=== PATIENT | female | born 1985 | race Caucasian/White ===

== ENCOUNTER 2021-06-24 14:23 | Outpatient (REF) | payer OTHER, SELFPAY ==
--- NOTE | ~2021-06-24 | US_ITS ---
EXAMINATION: US THYROID CLINICAL INFORMATION: Nontoxic single thyroid nodule. COMPARISON: None TECHNIQUE: Linear transducer grayscale and color Doppler examination with attention to the region of the thyroid. FINDINGS: SIZE: Measurements of the thyroid lobes and nodules are given in sagittal, anteroposterior and transverse dimensions respectively. Right Thyroid Lobe: 5.6 x 1.9 x 2.1 cm, volume 11.7 mL. Parenchyma: The gland echotexture is homogeneous. Thyroid vascularity is normal. Left Thyroid Lobe: 5.3 x 1.6 x 2.0 cm, volume 8.9 mL. Parenchyma: The gland echotexture is homogeneous. Thyroid vascularity is normal. Isthmus: 0.5 cm in maximum AP dimension. No focal thyroid nodule is seen. NODES: No lymphadenopathy is seen in the tissue surrounding the thyroid gland. US/US thyroid IMPRESSION: Slightly prominent right thyroid lobe upper limits of normal. No focal nodule or mass seen. ACR TI-RADS RECOMMENDATION REFERENCE: Ultrasound-guided fine-needle aspiration, followup ultrasound, no further follow up. * TR1 (0 point) and TR 2 (2 points): No FNA or follow up * TR3 (3 points): FNA if more than or equal to 2.5 cm in maximum dimension, followup ultrasound in 1, 3 and 5 years if 1.5 to 2.4 cm in maximum dimension. * TR4 (4-6 points): FNA if more than or equal to 1.5 cm in maximum dimension, followup ultrasound in 1, 2, 3 and 5 years if 1 to 1.4 cm in maximum dimension. * TR5 (more than or equal to 7 points): FNA if more than or equal to 1 cm in maximum dimension, followup ultrasound every year for 5 years if 0.5 to 0.9 cm in maximum dimension. * TR3, TR4 or TR5 nodules that are below the size threshold for follow up receive no follow up.
== END 2021-06-24 14:24 | disposition home or self-care (01) ==
LOC: HO.HMGCX 14:23
PROVIDERS: Visit Provider Internal Medicine Medical Oncology
DX: E04.1 Nontoxic single thyroid nodule (principal)
CPT/HCPCS: 76536

== ENCOUNTER 2021-07-06 10:02 | Outpatient (REF) | payer OTHER, SELFPAY ==
[2021-07-06 14:11] LABS: Free T4 (Free Thyroxine) 0.98 ng/dL (0.71-1.85); Thyroid Stimulating Hormone 0.84 uIU/mL (0.32-4.0)
[2021-07-08 05:32] LABS: Thyroid Peroxidase Antibodies 1 IU/mL (<9)
== END 2021-07-06 10:03 | disposition home or self-care (01) ==
LOC: HO.10HDL 10:02
PROVIDERS: Visit Provider Internal Medicine Medical Oncology
DX: Z13.29 Encounter for screening for other suspected endocrine disorder (principal)
CPT/HCPCS: 36415; 84439; 84443; 86376

== ENCOUNTER 2021-10-20 12:52 | Outpatient (REF) | payer OTHER, SELFPAY ==
[2021-10-20 12:57] VITALS: BMI 24.7
[2021-10-20 12:59] VITALS: BP 125/60; PULSE 83; RESP 16; TEMP 36.9; O2SAT 98
[2021-10-20 13:42] VITALS: BP 128/65; PULSE 70; RESP 16; O2SAT 99
--- NOTE | 2021-10-27 08:30 | W.PM.OPN ---
Operative Note Operative Note Date of Service: 10/27/21 Narrative: Preoperative diagnosis: Raised skin lesion lower left back Postoperative diagnosis: Same, probable protuberant lipoma Procedure: Excision of large skin lesion lower left back Surgeon: Huy Amador MD [place] Drill Operator: None Anesthesia: Local Indications for procedure: 35-year-old female presenting with a gradually enlarging soft tissue mass of the lower left back increasing in size but not causing significant pain Operative findings: Apparent lipoma extending below the skin measuring approximately 2.5 cm in diameter Specimen: Skin lesion left lower back, possible lipoma Estimated blood loss: Less than 2 mL Complications: None Procedure details: Patient was brought to the OR and placed in a prone position. The site of surgery was confirmed by the patient the lower left back. After assuring informed consent the skin was prepped with Betadine and draped in a sterile fashion. Local anesthesia was then infiltrated surrounding the lesion an elliptical incision created oriented in a transverse fashion. This was carried out through subcutaneous tissue and around the underlying mass. The underlying mass appeared fatty nature and extended into the subcutaneous tissue. The lesion measured approximately 2.5 cm in diameter and extended approximately 2 cm below the skin. Lesion was passed off the table and sent to pathology for further examination. Dermis was reapproximated using interrupted 3-0 Polysorb sutures. Skin was then closed using a running subcuticular 4-0 Polysorb suture. Steri-Strips, 2 x 2 gauze and Tegaderm were then applied. The patient tolerated the procedure well. She was discharged to home in stable condition.
== END 2021-10-20 12:53 | disposition home or self-care (01) ==
LOC: HO.MS 12:52
PROVIDERS: PCP Internal Medicine Medical Oncology; Visit Provider Surgery
PROC: (CPT 21930; principal; 2021-10-20 13:00)
DX: D17.1 Benign lipomatous neoplasm of skin and subcutaneous tissue of trunk (principal)
CPT/HCPCS: 21930; 88304; 88341; 88342; 88374; 88377

== ENCOUNTER 2021-12-02 09:29 | Outpatient (REF) | payer OTHER, SELFPAY | END 2021-12-02 09:30 | disposition home or self-care (01) | LOC: HO.LNP 09:29 | PROVIDERS: PCP Internal Medicine Medical Oncology; Visit Provider Surgery | DX: D23.9 Other benign neoplasm of skin, unspecified (principal) | CPT/HCPCS: 11404; 88305 ==

== ENCOUNTER 2022-09-27 08:54 | Outpatient (REF) | payer MEDICAID, SELFPAY ==
[2022-09-28 14:53] LABS: BV Int Neg Control Negative (Negative); BV Int Pos Control Positive (Positive)
[2022-10-03 21:14] LABS: HPV mRNA E6/E7 rflx Not Detected (Not Detected)
== END 2022-09-27 08:55 | disposition home or self-care (01) ==
LOC: HO.LNP 08:54
PROVIDERS: PCP Internal Medicine Medical Oncology; Visit Provider Advanced Practice Midwife
DX: Z01.419 Encounter for gynecological examination (general) (routine) without abnormal findings (principal); B35.9 Dermatophytosis, unspecified; Z11.3 Encounter for screening for infections with a predominantly sexual mode of transmission
CPT/HCPCS: 0353U; 86780; 86803; 87340; 87389; 87480; 87510; 87624; 87660; 88142; 99385

== ENCOUNTER 2022-09-27 08:54 | Outpatient (AMB) | payer MEDICAID, SELFPAY ==
[2022-09-27 08:55] VITALS: BP 122/70; BMI 25.4
--- NOTE | 2022-09-27 08:55 | MHC.OFFVIS ---
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 Accompanied by: Self / Same As Patient Allergies amoxicillin [From Augmentin] Adverse Reaction (Mild, Verified 09/27/22 08:59) Unknown clavulanic acid [From Augmentin] Adverse Reaction (Mild, Verified 09/27/22 08:59) Unknown Medication List - Last Reconciled 09/27/22 by Gerri Carroll CNM multivitamin (Daily Multi-Vitamin tablet) 1 tab PO DAILY Is last menstrual period known: Yes Last menstrual period: 09/03/22 HPI New Patient Annual HPI Details 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 He has had a vasectomy so she does not need to worry about control she gets very regular periods. She sees Dr. Colbert for primary care she says that he gave her a prescription for an area under her left breast that sometimes becomes very itchy and beckham but she was involved with what ever was going on with her child at the time and when she finally went to the pharmacy they said there was no prescription active anymore. She has no vaginal itching or burning or symptoms. 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 [facility], [facility] Surgical History History of excision of lesion (10/20/21) History of excision of mass (12/02/21) History of wisdom tooth extraction Social History Alcohol intake: current Patient Tobacco Use Status: Never used Tobacco Female Reproductive History Menstrual Age of Menarche: 12 Date of last menstrual period: 09/03/22 Total pregnancies: 2 Number of Living Children: 2 Physical Exam Vital Signs: Last Vital Signs BP 122/70 09/27/22 08:55 BMI result Body Mass Index 25.4 Const General: healthy appearing, comfortable, no acute distress, well developed and alert Nutritional Appearance: average body habitus Orientation/consciousness: patient oriented x3 Limitations: no limitations HEENT Head: Yes normocephalic Neck Neck: Yes normal visual inspection Chest Chest palpation & inspection: normal inspection of the chest Breast/axilla inspection: normal inspection of the breasts and normal inspection of the axillae Breast/axilla palpation: normal palpation of the breasts and normal palpation of the axillae Resp Effort & Inspection: normal respiratory effort GI Inspection: Yes normal to inspection, No Abdominal wall edema and No distended Palpation (GI): Soft to palpation and nontender Other: Vagina pink and moist with white discharge. Cervix multiparous uterus midposition to anteverted nontender mobile adnexa nontender mobile good tone with Kegel General: Yes bladder normal to palpation External Female Exam: normal external appearance and normal appearance of the urethra Speculum Exam - Vagina: normal appearance of the vagina, normal palpation and normal vaginal discharge Speculum Exam - Cervix: normal appearance of the cervix, normal palpation and nontender Bimanual exam- vagina & uterus: normal bimanual exam, normal palpation, uterine size normal, bladder normal to palpation, consistency normal, normal palpation, uterine mobility normal, uterine shape normal, No Cervical tenderness present, non-tender and no cervical motion tenderness Bimanual Exam- Adnexa, other: normal adnexae, no masses, normal and No adnexal tenderness Skin Other: Patient has various moles that she has been told are cosmetic and deandre on her left wrist Has scar from lesion on her back that was excised in recent years Has oval shaped pink area about 1-2 cm below left breast approximately 3 to 4 centimetres at its widest with slightly pink raised borders consistent with tinea. Neuro General: patient oriented x3 Assessment & Plan Assessment & Plan (1) Screen for sexually transmitted diseases: Code(s): Z11.3 - Encounter for screening for infections with a predominantly sexual mode of transmission (2) Breast cancer screening: Code(s): Z12.39 - Encounter for other screening for malignant neoplasm of breast (3) Cervical cancer screening: Code(s): Z12.4 - Encounter for screening for malignant neoplasm of cervix (4) Well woman exam with routine gynecological exam: Code(s): Z01.419 - Encounter for gynecological examination (general) (routine) without abnormal findings (5) Tinea: Code(s): B35.9 - Dermatophytosis, unspecified Plan -----Discussed in this visit the following: healthy balanced diet, regular and consistent exercise, getting recommended health screens, doing the best she can for her particular health concerns, kegel exercises, pap smear screening and followup recommendations, mammography screening and SBE, normal changes in cycles in her life stage--- . Testing was ordered for her for STIs and a full discussion about which STIs we are screening for and why and 1 not others. Also discussed her skin lesion it is consistent with a tinea/fungal lesion because of its shape and symptoms and morphology. I offered her prescription for an antifungal cream that she can try and if it does not work she certainly can review again with her primary care provider. We will see her every year and p.r.n.. Mammograms with started age 38.. Orders: Orders Hepatitis B Surface Antigen Today B35.9 - Dermatophytosis, unspecified, Z01.419 - Encounter for gynecological examination (general) (routine) without abnormal findings, Z11.3 - Encounter for screening for infections with a predominantly sexual mode of transmission, Z12.39 - Encounter for other screening for malignant neoplasm of breast, Z12.4 - Encounter for screening for malignant neoplasm of cervix Hepatitis C Antibody Today B35.9 - Dermatophytosis, unspecified, Z01.419 - Encounter for gynecological examination (general) (routine) without abnormal findings, Z11.3 - Encounter for screening for infections with a predominantly sexual mode of transmission, Z12.39 - Encounter for other screening for malignant neoplasm of breast, Z12.4 - Encounter for screening for malignant neoplasm of cervix HIV Ab/Ag Today B35.9 - Dermatophytosis, unspecified, Z01.419 - Encounter for gynecological examination (general) (routine) without abnormal findings, Z11.3 - Encounter for screening for infections with a predominantly sexual mode of transmission, Z12.39 - Encounter for other screening for malignant neoplasm of breast, Z12.4 - Encounter for screening for malignant neoplasm of cervix Syphilis Screen Today B35.9 - Dermatophytosis, unspecified, Z01.419 - Encounter for gynecological examination (general) (routine) without abnormal findings, Z11.3 - Encounter for screening for infections with a predominantly sexual mode of transmission, Z12.39 - Encounter for other screening for malignant neoplasm of breast, Z12.4 - Encounter for screening for malignant neoplasm of cervix Bacterial Vaginosis Panel Today Z01.419 - Encounter for gynecological examination (general) (routine) without abnormal findings CT NG by PCR Today Z01.419 - Encounter for gynecological examination (general) (routine) without abnormal findings Pap Smear Today Z01.419 - Encounter for gynecological examination (general) (routine) without abnormal findings Medications: New clotrimazole 1% (Lotrimin AF (clotrimazole)) 1 appl topical BID 2 weeks 45 grams 0RF Coding Level of Care Code New Pt Prev Care 18-39yr([id number] Diagnoses Screen for sexually transmitted diseases Z11.3 Breast cancer screening Z12.39 Cervical cancer screening Z12.4 Well woman exam with routine gynecological exam Z01.419 Tinea B35.9
== END 2022-09-27 09:58 | disposition home or self-care (01) ==
LOC: HO.HWS 08:54
PROVIDERS: PCP Internal Medicine Medical Oncology; Visit Provider Advanced Practice Midwife
DX: Z01.419 Encounter for gynecological examination (general) (routine) without abnormal findings (principal); Z11.3 Encounter for screening for infections with a predominantly sexual mode of transmission; Z12.39 Encounter for other screening for malignant neoplasm of breast; B35.9 Dermatophytosis, unspecified
CPT/HCPCS: 99385

== ENCOUNTER 2022-09-27 10:02 | Outpatient (REF) | payer MEDICAID, SELFPAY ==
[2022-09-27 11:19] LABS: Syphilis Screen Nonreactive (Nonreactive)
[2022-09-27 11:20] LABS: HBsAGNum1 0.44 S/CO (0.00-0.99); HIV AB/AG Nonreactive (Nonreactive); HIV Num 1 0.05 S/CO (0.00-0.99); Hepatitis B Surface Antigen Negative (Negative); ~HepC Num1 0.07 S/CO (0.00-0.79); ~Hepatitis C Antibody Nonreactive (Nonreactive)
[2022-09-28 01:50] LABS: CT PCR NOT DETECTED (Not Detect.); NG PCR NOT DETECTED (Not Detect.)
== END 2022-09-27 10:03 | disposition home or self-care (01) ==
LOC: HO.LAB 10:02
PROVIDERS: PCP Internal Medicine Medical Oncology; Visit Provider Advanced Practice Midwife
DX: Z01.419 Encounter for gynecological examination (general) (routine) without abnormal findings (principal); B35.9 Dermatophytosis, unspecified; Z11.3 Encounter for screening for infections with a predominantly sexual mode of transmission; Z12.39 Encounter for other screening for malignant neoplasm of breast
CPT/HCPCS: 0353U; 86780; 86803; 87340; 87389

== ENCOUNTER 2024-01-15 10:38 | Outpatient (REF) | payer MEDICAID, SELFPAY ==
--- NOTE | ~2024-01-15 | MM_ITS ---
EXAMINATION: MM SCREENING DIGITAL BREAST TOMOSYNTHESIS, BILATERAL CLINICAL INFORMATION: Screening. Asymptomatic. COMPARISON: Mammography: Baseline. TECHNIQUE: Digital breast mammography with tomosynthesis is performed in both the craniocaudal and mediolateral oblique views along with computer-aided detection (CAD). FINDINGS: The breasts are heterogeneously dense, which may obscure small masses (ACR BI-RADS breast composition Category c). There are no significant masses, abnormal calcifications, or other abnormalities. MM/MM tomosynthesis screening BI IMPRESSION: No mammographic evidence of malignancy. ASSESSMENT: BI-RADS BI-RADS 1 - Negative RECOMMENDATION: Routine annual mammography screening. 1 year F/U This examination should not preclude the clinical evaluation of a suspicious palpable abnormality. This patient's information was entered into a reminder system with a target due date for their next mammogram. Electronically signed by: Cathryn Aiken DO 01/23/2024 12:38 PM [facility]
== END 2024-01-15 10:39 | disposition home or self-care (01) ==
LOC: HO.MAMMO 10:38
PROVIDERS: PCP Internal Medicine Medical Oncology; Visit Provider Internal Medicine Medical Oncology
DX: Z12.31 Encounter for screening mammogram for malignant neoplasm of breast (principal)
CPT/HCPCS: 77063; 77067

== ENCOUNTER → 2024-01-15 10:45 | Outpatient (BNV) | payer MEDICAID, SELFPAY | PROVIDERS: PCP Internal Medicine Medical Oncology; Visit Provider Internal Medicine | DX: Z12.31 Encounter for screening mammogram for malignant neoplasm of breast (principal) | CPT/HCPCS: 77063; 77067 ==

== ENCOUNTER 2024-01-22 09:44 | Outpatient (AMB) | payer MEDICAID, SELFPAY ==
--- NOTE | 2024-01-22 09:38 | MHC.OFFVIS ---
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 She gets regular periods that are not too crampy bothersome. She is very aware of her cycle she uses condoms avoids unprotected sex around times of ovulation very careful. She wants about control so she does not have to worry about it as much she she is done with childbearing. She has heard about different methods and has questions about them. She did use pills a few years ago she was younger. She is concerned about potential for limited access to methods going forward in the future for reproductive health secondary to recent changes. She had her 1st mammogram recently. Her health is good. She does need a Pap smear this year. COUNT INCLUDES THE [facility] Surgical History History of excision of mass (12/02/21) History of excision of lesion (10/20/21) History of wisdom tooth extraction Social History Alcohol intake: current Patient Tobacco Use Status: Never used Tobacco Female Reproductive History Menstrual Age of Menarche: 12 Date of last menstrual period: 12/31/23 control method: none Total pregnancies: 2 Full term: 2 Date of last pap smear: 09/28/22 (ASCUS,NEG.HPV) History of abnormal pap smear: Yes Date of Mammogram: 01/15/24 (pending) Physical Exam Vital Signs: Last Vital Signs BP 118/70 01/22/24 09:42 BMI result Body Mass Index 24.3 Const General: healthy appearing, comfortable, no acute distress, well developed and alert Nutritional Appearance: average body habitus Orientation/consciousness: patient oriented x3 Limitations: no limitations HEENT Head: Yes normocephalic Neck Neck: Yes normal visual inspection Chest Chest palpation & inspection: normal inspection of the chest Breast/axilla inspection: normal inspection of the breasts and normal inspection of the axillae Breast/axilla palpation: normal palpation of the breasts and normal palpation of the axillae Resp Effort & Inspection: normal respiratory effort GI Inspection: Yes normal to inspection, No Abdominal wall edema and No distended Palpation (GI): Soft to palpation and nontender Other: External exam within normal limits vagina is pink and moist cervix multiparous smooth healthy appearing with normal scant white and clear discharge uterus is small midposition to anteverted mobile nontender not anteflexed. Adnexa nontender nonenlarged very good tone Kegel. General: Yes bladder normal to palpation External Female Exam: normal external appearance and normal appearance of the urethra Speculum Exam - Vagina: normal appearance of the vagina, normal palpation and normal vaginal discharge Speculum Exam - Cervix: normal appearance of the cervix, normal palpation and nontender Bimanual exam- vagina & uterus: normal bimanual exam, normal palpation, uterine size normal, bladder normal to palpation, consistency normal, normal palpation, uterine mobility normal, uterine shape normal, No Cervical tenderness present, non-tender and no cervical motion tenderness Bimanual Exam- Adnexa, other: normal adnexae, no masses, normal and No adnexal tenderness Neuro General: patient oriented x3 Assessment & Plan Assessment & Plan (1) Well woman exam with routine gynecological exam: Code(s): Z01.419 - Encounter for gynecological examination (general) (routine) without abnormal findings Category: Medical (2) Cervical cancer screening: Comment: 09/27/2022 Pap is ASCUS with negative HPV. ( C CP recommends 3 year follow-up but that is based on regular screening and it is unclear when her last actual Pap was,) Code(s): Z12.4 - Encounter for screening for malignant neoplasm of cervix Category: Medical (3) Screen for sexually transmitted diseases: Code(s): Z11.3 - Encounter for screening for infections with a predominantly sexual mode of transmission Category: Medical (4) Breast cancer screening: Code(s): Z12.39 - Encounter for other screening for malignant neoplasm of breast Category: Medical (5) control counseling: Code(s): Z30.09 - Encounter for other general counseling and advice on contraception Category: Medical (6) Encounter for initial prescription of intrauterine contraceptive device (IUD): Comment: After full discussion patient has decided to try ParaGard IUD signed form today. we will plan for insertion on 1st heavy day of menses. (menses 5 days but only heavy on 2nd day). Code(s): Z30.014 - Encounter for initial prescription of intrauterine contraceptive device Category: Medical Plan -----Discussed in this visit the following: healthy balanced diet, regular and consistent exercise, getting recommended health screens, doing the best she can for her particular health concerns, kegel exercises, pap smear screening and followup recommendations, mammography screening and SBE, normal changes in cycles in her life stage--- .-I reviewed with the patient, all of the currently common used methods of control that are available. We reviewed how they work in the body, how they are taken, common side effects, uncommon side effects, precautions, and contraindications. -Discussed also factors that influence their effectiveness and use, and womens satisfaction with the method. -Discussed how each are used, and drawbacks of each method as well. -Methods covered included: condoms, control pills, control patches, control rings, Depo-Provera, Nexplanon, Mirena and Kyleena IUDs, and ParaGard IUDs. All of the above methods were covered in great detail including their side effect profiles and common experiences that women have and ways to mitigate against the negative experiences including attention to diet and exercise patient's with bleeding challenges that may occur her and efforts to time the initiation of the method to this start of the menstrual period. Plan made with patient to sign form today for the ParaGard IUD which is what she decided upon and we will plan for insertion on the heaviest day of her menses which is for her usually the about the 2nd day. Admittedly this can challenging to schedule and her next menses is probably going to come around Thanksgiving however it probably will not be in then. Coding Level of Care Code Est Pt Prev Care 40-64y(33171) Diagnoses Well woman exam with routine gynecological exam Z01.419 Cervical cancer screening Z12.4 Screen for sexually transmitted diseases Z11.3 Breast cancer screening Z12.39 control counseling Z30.09 Encounter for initial prescription of intrauterine contraceptive device (IUD) Z30.014
[2024-01-22 09:42] VITALS: BP 118/70; BMI 24.3
== END 2024-01-22 10:52 | disposition home or self-care (01) ==
PROVIDERS: PCP Internal Medicine Medical Oncology; Visit Provider Advanced Practice Midwife
DX: Z01.419 Encounter for gynecological examination (general) (routine) without abnormal findings (principal); Z12.4 Encounter for screening for malignant neoplasm of cervix; Z11.3 Encounter for screening for infections with a predominantly sexual mode of transmission; Z12.39 Encounter for other screening for malignant neoplasm of breast; Z30.09 Encounter for other general counseling and advice on contraception; Z30.014 Encounter for initial prescription of intrauterine contraceptive device
CPT/HCPCS: 99396

== ENCOUNTER 2024-01-22 09:44 | Outpatient (REF) | payer MEDICAID, SELFPAY ==
[2024-01-23 06:06] LABS: CT PCR NOT DETECTED (Not Detect.); NG PCR NOT DETECTED (Not Detect.)
[2024-01-23 10:55] LABS: Bacterial Vaginosis PCR POSITIVE (Negative); Candida Group PCR NOT DETECTED (Not Detect); Candida glab krusei PCR NOT DETECTED (Not Detect); Trichomonas vaginalis PCR NOT DETECTED (Not Detect)
== END 2024-01-22 09:45 | disposition home or self-care (01) ==
LOC: HO.LAB 09:44
PROVIDERS: PCP Internal Medicine Medical Oncology; Visit Provider Advanced Practice Midwife
DX: N89.8 Other specified noninflammatory disorders of vagina (principal); Z20.2 Contact with and (suspected) exposure to infections with a predominantly sexual mode of transmission; Z01.419 Encounter for gynecological examination (general) (routine) without abnormal findings; Z12.4 Encounter for screening for malignant neoplasm of cervix; Z11.3 Encounter for screening for infections with a predominantly sexual mode of transmission; Z12.39 Encounter for other screening for malignant neoplasm of breast; Z87.42 Personal history of other diseases of the female genital tract
CPT/HCPCS: 0352U; 87491; 87591; 99396

== ENCOUNTER 2024-01-22 11:05 | Outpatient (REF) | payer MEDICAID, SELFPAY ==
[2024-01-23 10:53] LABS: HPV 16,18/45 See PAP report
== END 2024-01-22 11:06 | disposition home or self-care (01) ==
LOC: HO.LNP 11:05
PROVIDERS: Visit Provider Advanced Practice Midwife
DX: Z01.419 Encounter for gynecological examination (general) (routine) without abnormal findings (principal); Z11.51 Encounter for screening for human papillomavirus (HPV)
CPT/HCPCS: 87624; 88175